=== PATIENT | female | born 1990 | race Caucasian/White ===

== ENCOUNTER 2023-03-31 20:02 | Emergency (ER) | payer OTHER ==
[~2023-03-31 20:02] MED LIST: Iopamidol-370 76% 500 ML MDV (1 ML CHARGE) ONE
[2023-03-31] MEDS ORDERED: Ondansetron PF 4 MG/2 ML Vial ONE (20:18)
[2023-03-31] MEDS ORDERED: Morphine 4 MG/ML VIAL ONE (20:18)
[2023-03-31 20:20] LABS: #Monocytes 1.3 thou/uL (0.11-0.59); %Basophils 0.2 % (0.0-1.0); %Eosinophils 0.2 % (0.0-10.0); %Lymphocytes 10.1 % (21.0-51.0); %Monocytes 6.6 % (0.0-10.0); %Neutrophils 82.3 % (42.0-75.0); Hemoglobin 13.4 g/dL (12.0-16.0); Mean Corpuscular HGB CONC 33.8 g/dL (32.0-36.0); Mean Corpuscular Hemoglobin 30.1 pg (27.0-31.0); Mean Platelet Volume 10.5 fL (7.4-10.4); Platelet Count 248 10x3/uL (130-400); RBC Distribution Width 12.2 % (11.5-14.5); Red Blood Cell (RBC) Count 4.45 mill/uL (4.20-5.40); White Blood Cell (WBC) Count 19.5 10x3/uL (4.8-10.8)
[2023-03-31 20:27] LABS: BHCG - Serum Negative (NEGATIVE); Pregs Control Background? CLEAR/WHITE (CLR/WHITE); Pregs Control Bar Appear? YES (CONTROL BAR)
[2023-03-31 20:36] LABS: PTT 24.8 sec (22.9-36.1); Prothrombin Time 13.6 sec (12.0-14.7)
[2023-03-31] MEDS ORDERED: CEFAZOLIN 2 GM VIAL ONE (20:44)
[2023-03-31] MEDS ORDERED: Boostrix 0.5 ML (Tdap) VIAL (>/=7 yrs of age) ONE (20:44)
[2023-03-31 20:58] LABS: ALT (SGPT) 24 U/L (8-55); AST (SGOT) 35 U/L (5-34); Alcohol Less than 10.0 mg/dL (Less than 10); Alkaline Phosphatase 58 U/L (40-110); Anion Gap 14 mmol/L (10-20); BUN (Urea Nitrogen) 14 mg/dL (7.0-18.7); Bilirubin, Total 0.6 mg/dL (0.2-1.2); Calc. Creatinine Clearance 0 mL/min (70-130); Carbon Dioxide 17 mmol/L (22-29); Chloride 108 mmol/L (98-107); Estimated GFR 95; Globulin 2.8 g/dL (2.4-3.5); Glucose 131 mg/dL (70-105); Lipase 44 U/L (8-78); Potassium 3.3 mmol/L (3.5-5.1); Protein, Total 6.8 g/dL (6.0-8.3); Sodium 136 mmol/L (136-145)
[2023-03-31] MEDS ORDERED: Lidocaine 2% PF 5 ML VIAL ONE (21:26)
[2023-03-31] MEDS ORDERED: HYDROcodone/Acetaminophen 5/325 mg Tablet ONE (22:04)
[2023-03-31] MEDS ORDERED: Bacitracin 1 PK ONE (22:31)
== END 2023-03-31 23:20 | disposition home or self-care (01) ==
LOC: ERS 20:02
DX: S82.841A Displaced bimalleolar fracture of right lower leg, initial encounter for closed fracture (principal); S30.1XXA Contusion of abdominal wall, initial encounter; S80.01XA Contusion of right knee, initial encounter; S80.812A Abrasion, left lower leg, initial encounter; V89.2XXA Person injured in unspecified motor-vehicle accident, traffic, initial encounter
CPT/HCPCS: 12001; 70450; 71260; 72125; 74177; 80053; 80307; 83605; 83690; 84703; 85025; 85610; 85730; 90471; 90715; 96365; 96375; G0390; J2001; J2270; J2405; Q9967